=== PATIENT | male | born 1965 | race African-American/Black ===

== ENCOUNTER 2016-12-01 04:27 | Emergency (ER) | payer MEDICAID ==
[~2016-12-01] VITALS: Ht 182.9 cm; Wt 90.7 kg
[2016-12-01 05:39] VITALS: BP 101/79
== END 2016-12-01 06:48 | disposition home or self-care (01) ==
LOC: ER 04:31
DX: S00.81XA Abrasion of other part of head, initial encounter (principal); F10.129 Alcohol abuse with intoxication, unspecified; V49.9XXA Car occupant (driver) (passenger) injured in unspecified traffic accident, initial encounter; Y93.89 Activity, other specified; Y99.8 Other external cause status; Y92.89 Other specified places as the place of occurrence of the external cause; Y90.9 Presence of alcohol in blood, level not specified
CPT/HCPCS: 36415; 71250; 80320; 82962

== ENCOUNTER 2021-04-29 18:42 | Emergency (ER) | payer BC, MEDICAID ==
[~2021-04-29] VITALS: Ht 182.9 cm; Wt 61.7 kg
[2021-04-29 19:31] LABS: Basophils # (auto) 0 10 ^3/uL (0-0.2); Basophils % (auto) 0.3 % (0.0-2.0); Eosinophils # (auto) 0 10 ^3/uL (0-0.8); Eosinophils % (auto) 0.1 % (0.0-7.0); Hematocrit 48.4 % (41.0-53.0); Lymphocytes # (auto) 0.9 10 ^3/uL (0.4-5.4); Lymphocytes % (auto) 12.9 % (10.0-50.0); Mean Corpuscular Hemoglobin 31.5 pg (28.0-32.0); Mean Corpuscular Hgb Conc. 33.1 g/dL (32.0-36.0); Mean Corpuscular Volume 95.1 fL (80.0-100.0); Monocytes # (auto) 0.7 10 ^3/uL (0-1.3); Neutrophils # (auto) 5.7 10 ^3/uL (1.6-8.6); Neutrophils % (auto) 77.7 % (37.0-80.0); Red Blood Cells 5.08 10^6/uL (4.5-5.90); Red Cell Distribution Width 14.1 % (11.8-14.3); White Blood Cell 7.3 10^3/uL (4.4-10.8)
[2021-04-29 19:45] LABS: INR 1.04 (0.9-1.15)
[2021-04-29 19:48] LABS: Albumin 3.6 g/dL (3.4-5.0); Anion Gap 15 (5-15); Blood Urea Nitrogen 26 mg/dL (7-18); Calcium 9.2 mg/dL (8.5-10.1); Carbon Dioxide 23 mmol/L (21-32); Chloride 94 mmol/L (98-107); Glucose 365 mg/dL (74-106); Magnesium 2.4 mg/dL (1.6-2.6); Potassium 4.6 mmol/L (3.5-5.1); Sodium 132 mmol/L (136-145)
[2021-04-29 19:55] LABS: Alanine Aminotransferase 24 U/L (16-61); Alkaline Phosphatase 91 U/L (45-117); Aspartate Aminotransferase 16 U/L (15-37); BUN/Creatinine Ratio 18.8; Bilirubin, Total 0.6 mg/dL (0.2-1.0); GFR African American 68 mL/min; GFR Non-African American 56 mL/min; Total Protein 7.5 g/dL (6.4-8.2)
[2021-04-29] MEDS ORDERED: SODIUM CHLORIDE 0.9% 1,000 ML IV ONE (20:15)
[2021-04-29 20:19] LABS: Lactic Acid w/Reflex 2.7 mmol/L (0.4-2.0)
[2021-04-29] MEDS ORDERED: TETANUS-DIPTH-ACEL PERTUSSIS 0.5ML SYR Tdap IM ONE (21:15)
[2021-04-29] MEDS ORDERED: ACETAMINOPHEN 325 MG TAB PO ONE (21:15)
[2021-04-29] MEDS ORDERED: ONDANSETRON HCL 4 MG/2 ML VIAL IV ONE (21:30)
[2021-04-29] MEDS ORDERED: LIDOCAINE 1% HCL (LOCAL ANESTH.) INJ 20ML MDV ID ONE (22:30)
[2021-04-29] MEDS ORDERED: cefTRIAXone SOD 1,000 MG VL IM ONE (23:45)
[2021-04-30] MEDS ORDERED: cefTRIAXone 1GM/50ML D5W 50 ML IV ONE (01:00)
[2021-04-30] MEDS ORDERED: SODIUM CHLORIDE 0.9% 1,000 ML IV ONE (01:30)
[2021-04-30] MEDS ORDERED: INSULIN LISPRO (HUMAN) 100 UNITS/ML ML SC ONE (01:30)
[2021-04-30 04:37] LABS: BUN/Creatinine Ratio 26.2; Calcium 8.8 mg/dL (8.5-10.1)
[2021-04-30 04:56] LABS: Alcohol, Urine < 3.0 mg/dL (0-10); Amphetamine Screen, Urine NEGATIVE (NEGATIVE); Barbiturate Scree,Urine NEGATIVE (NEGATIVE); Benzodiazephine Screen, Urine NEGATIVE (NEGATIVE); Cannabinoid Screen, Urine NEGATIVE (NEGATIVE); Cocaine Screen, Urine NEGATIVE (NEGATIVE); Opiate Scree,Urine NEGATIVE (NEGATIVE); Phencyclidine Screen, Urine NEGATIVE (NEGATIVE)
[2021-04-30 06:12] VITALS: BP 111/65
== END 2021-04-30 06:56 | disposition home or self-care (01) ==
LOC: ER 18:42
DX: S01.112A Laceration without foreign body of left eyelid and periocular area, initial encounter (principal); S01.111A Laceration without foreign body of right eyelid and periocular area, initial encounter; R55 Syncope and collapse; R42 Dizziness and giddiness; E86.0 Dehydration; E11.9 Type 2 diabetes mellitus without complications; Z20.822 Contact with and (suspected) exposure to COVID-19; W22.8XXA Striking against or struck by other objects, initial encounter; Y93.89 Activity, other specified; Y92.89 Other specified places as the place of occurrence of the external cause; Y99.8 Other external cause status
CPT/HCPCS: 12013; 36415; 36600; 70450; 73030; 80048; 80053; 80307; 80320; 82010; 82805; 82962; 83605; 83735; 83880; 84484; 85025; 85610; 87426; 90471; 90715; 93005; 96361; 96365; 96372; 96375; 99285; J0696; J1815; J2405; J7030